=== PATIENT | female | born 1945 | race Caucasian/White ===

== ENCOUNTER 2020-03-09 14:28 | Inpatient (IN) | payer MEDICARE ==
[~2020-03-09] VITALS: Ht 152.4 cm; Wt 47.8 kg
[~2020-03-09 14:28] MED LIST: AMLO-150 PO; ASPI-515 PO; ATOR40TA78 PO; CYAN500T18 PO; DOCU100C33 PO; ENOX30SY4 SC; ERGO500017 PO; FOLI-17 PO; FURO20TA3 PO; GABA-827 PO; GABA100C PO; GUAI200T37 PO; HYDR-3342 PO; HYDR-826 PO; IPRA0.2S35 INH; LOSA100T14 PO; LOSA1TAB25 PO; METH2.5T PO; MORP-29 PO; MULT-108 PO; OXYC5CAP2 PO; OXYC5TAB3 PO; POTA10CA PO; RIVA10TA2 PO; ROPI2TAB8 PO; SIME80TA15 PO; SULF500T36 PO; Sulfameth./Trimethoprim Ds PO; TRAZ50TA66 PO
[2020-03-09] MEDS ORDERED: SODIUM CHLORIDE 0.9% 1,000ML IVBOLUS ONE (15:00)
[2020-03-09] MEDS ORDERED: SODIUM CHLORIDE FLUSH 10ML SYR IVF ONE (15:00)
[2020-03-09] MEDS ORDERED: ONDANSETRON 2MG/ML, 2ML IVPush ONE (15:00)
[2020-03-09] MEDS ORDERED: ONDANSETRON 2MG/ML, 2ML ONE (15:15)
[2020-03-09] MEDS ORDERED: HYDROmorphone 1 MG/ML, 1ML INJ ONE ×2 (15:15→15:42)
[2020-03-09] MEDS: HYDROmorphone 2 MG/ML, 1ML IVPush PRN ×2 (15:49→16:18)
[2020-03-09] MEDS ORDERED: HYDROmorphone 1 MG/ML, 1ML INJ IV ONE ×2 (16:00→17:30)
--- NOTE | 2020-03-09 16:08 | NUR ---
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 REQUESTING PLACEMENT FOR FURTHER CARE. 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 LIS SW IN ROOM TALKING TO FAMILY. PT STOOL AND URINE CLEANED, A PUREWICK PUT IN. PT STILL HAVING 10/10 PAIN. CALL LIGHT IN REACH.
[2020-03-09 16:30] LABS: ALBUMIN 2.3 g/dL (3.4-5.0); ANION GAP 5 mmol/L (5-15); CALCIUM 8.4 mg/dL (8.5-10.1); CHLORIDE 108 mmol/L (98-107); CREATININE 0.52 mg/dL (0.55-1.02)
[2020-03-09 16:31] LABS: BASOPHILS % (AUTO) 1 % (0-1); EOSINOPHILS % (AUTO) 2 % (1-7); LYMPHOCYTES % (AUTO) 8 % (22-44); MEAN CORPUSCULAR HEMOGLOBIN 24.5 pg (27.0-34.8); MEAN CORPUSCULAR HGB CONC 31.2 g/dL (32.4-35.8); MEAN PLATELET VOLUME 7.4 fL (7.4-10.4); MONOCYTES % (AUTO) 8 % (2-9); NEUTROPHILS % (AUTO) 82 % (42-75); PLATELET COUNT 610 x10^3/uL (130-400); RED BLOOD COUNT 5.05 x10^6/uL (3.82-5.3); RED CELL DISTRIBUTION WIDTH 22.2 % (9.6-15.2)
[2020-03-09 16:36] LABS: ALANINE AMINOTRANSFERASE < 6 U/L (12-78)
[2020-03-09 16:37] LABS: ALKALINE PHOSPHATASE 105 U/L (45-117); BILIRUBIN,TOTAL 0.4 mg/dL (0.2-1.0); C-REACTIVE PROTEIN, QUANT 7.71 mg/dL (0.02-0.49); TOTAL PROTEIN 7.5 g/dL (6.4-8.2)
[2020-03-09 16:50] LABS: MD NO
[2020-03-09] MEDS ORDERED: VANCOMYCIN PER PHARMACY MC PRN (17:00)
[2020-03-09] MEDS ORDERED: AMPICILLIN/SULBACTAM 3 GM in SODIUM CHLORIDE 0.9% 100 ML IV ONE (17:00)
[2020-03-09] MEDS ORDERED: VANCOMYCIN 900 MG in SODIUM CHLORIDE 0.9% 100 ML IV ONE (17:00)
[2020-03-09 17:08] LABS: HCT (SEDRATE) 39.7 % (34.6-47.8)
[2020-03-09] MEDS ORDERED: KETAMINE 10 MG/ML, 20ML IV ONE ×2 (17:30→18:00)
[2020-03-09] MEDS ORDERED: KETAMINE 10 MG/ML, 20ML ONE ×2 (17:31→19:50)
--- NOTE | 2020-03-09 17:46 | NUR ---
PHARM REQUEST SENT FOR FAUSTINO
--- NOTE | 2020-03-09 18:09 | NUR ---
PT CALM RESTING IN BED
--- NOTE | 2020-03-09 18:59 | NUR ---
No sepsis bolus fluids per Lillie Morales.
[2020-03-09] MEDS ORDERED: ENALAPRILAT 1.25 MG/ML, 2ML IVPush PRN (19:00)
[2020-03-09] MEDS ORDERED: ENOXAPARIN 40 MG/0.4 ML SQ SCH (19:00)
[2020-03-09] MEDS ORDERED: ONDANSETRON ODT 4 MG PO PRN (19:00)
[2020-03-09] MEDS ORDERED: ONDANSETRON 2MG/ML, 2ML IVPush PRN (19:00)
--- NOTE | 2020-03-09 19:04 | NUR ---
REPORT RECEVIED FROM GILL HUBER
[2020-03-09] MEDS ORDERED: ERGOCALCIFEROL 50,000 UNIT CAPSULE PO SCH (19:30)
[2020-03-09] MEDS ORDERED: SENNOSIDES 8.6 MG TABLET PO PRN (19:30)
[2020-03-09] MEDS ORDERED: ENOXAPARIN 40 MG/0.4 ML ONE (20:07)
[2020-03-09] MEDS ORDERED: AMOXICILLIN/CLAV 875-125MG TABLET ONE (20:08)
[2020-03-09] MEDS ORDERED: TRAZODONE 50MG TABLET ONE (20:08)
[2020-03-09] MEDS ORDERED: ATORVASTATIN 40 MG TABLET ONE (20:08)
[2020-03-09] MEDS ORDERED: SULFAMETH./TRIMETHOPRIM DS 800MG/160MG TABLET ONE (20:08)
[2020-03-09] MEDS ORDERED: OXYcodone IR 5MG TABLET ONE (20:10)
[2020-03-09] MEDS ORDERED: BISACODYL 10 MG SUPP PR PRN (20:30)
[2020-03-09] MEDS ORDERED: POLYETHYLENE GLYCOL 17 GM PACKET PO PRN (20:30)
[2020-03-09] MEDS: AMOXICILLIN/CLAV 875-125MG TABLET PO SCH (20:52)
[2020-03-09] MEDS: SULFAMETH./TRIMETHOPRIM DS 800MG/160MG TABLET PO SCH (20:52)
[2020-03-09] MEDS: LACTATED RINGERS 1,000 ML IV SCH (20:53)
--- NOTE | 2020-03-09 20:55 | NUR ---
MEDICATED PER EMAR. PT UPDATED ON POC INCLUDING NEEDING UA. PT REFUSING CATHETER, SET UP WITH PUREWICK. PT READJUSTED IN BED FOR COMFORT. CALL LIGHT WITHIN REACH, BED LOCKED AND IN LOWEST POSITION.
[2020-03-09] MEDS ORDERED: ROPINIROLE HCL 2 MG PO SCH (21:00)
[2020-03-09] MEDS ORDERED: DOCUSATE 100 MG CAPSULE PO SCH (21:00)
[2020-03-09] MEDS ORDERED: ATORVASTATIN 40 MG TABLET PO SCH (21:00)
[2020-03-09] MEDS ORDERED: TRAZODONE 50MG TABLET PO SCH (21:00)
--- NOTE | 2020-03-09 22:00 | NUR ---
PT READJUSTED IN BED FOR COMFORT. WATER PROVIDED.
--- NOTE | 2020-03-09 23:22 | NUR ---
PT RESTING IN HOSPITAL BED, EYES SHUT. CALL LIGHT WITHIN REACH.
--- NOTE | 2020-03-10 00:01 | NUR ---
PT RESTING IN HOSPITAL BED, EYES SHUT. CALL LIGHT WITHIN REACH.
[2020-03-10] MEDS ORDERED: OXYcodone IR 5MG TABLET ONE (01:01)
[2020-03-10] MEDS: OXYcodone IR 5MG TABLET PO PRN ×2 (01:11→08:15)
--- NOTE | 2020-03-10 01:30 | NUR ---
PT CLEANED, PUREWICK REPLACED, PT MEDICATED FOR PAIN AND ADJUSTED FOR COMFORT. BED LINENS CHANGED.
[2020-03-10] MEDS ORDERED: KETAMINE 10 MG/ML, 20ML ONE (02:26)
[2020-03-10] MEDS: KETAMINE 10 MG/ML, 20ML IV PRN ×2 (02:30→10:23)
--- NOTE | 2020-03-10 02:37 | NUR ---
pt requesting pain meds, medicated per emar. Another pillow under back given to help with comfort.
--- NOTE | 2020-03-10 03:30 | NUR ---
PT ON HOSPITAL BED WITH EYES SHUT, NO NEEDS AT THIS TIME
--- NOTE | 2020-03-10 05:00 | NUR ---
REPORT GIVEN TO BAYRON HUBER
[2020-03-10] MEDS ORDERED: [UNRECOGNIZED DRUG - OTHER] PO SCH (05:25)
[2020-03-10] MEDS ORDERED: ASPIRIN 81 MG TABLET EC PO SCH (06:00)
[2020-03-10 06:16] VITALS: BP 138/67
[2020-03-10 07:18] LABS: MEAN CORPUSCULAR HEMOGLOBIN 24.8 pg (27.0-34.8); MEAN CORPUSCULAR HGB CONC 31.2 g/dL (32.4-35.8); MEAN PLATELET VOLUME 7.1 fL (7.4-10.4); PLATELET COUNT 556 x10^3/uL (130-400); RED BLOOD COUNT 4.29 x10^6/uL (3.82-5.3); RED CELL DISTRIBUTION WIDTH 21.5 % (9.6-15.2)
[2020-03-10 07:28] LABS: ANION GAP 3 mmol/L (5-15); CALCIUM 7.8 mg/dL (8.5-10.1); CHLORIDE 110 mmol/L (98-107)
[2020-03-10 07:30] LABS: CREATININE 0.49 mg/dL (0.55-1.02)
[2020-03-10 07:41] VITALS: BP 147/73
[2020-03-10 07:42] LABS: MD YES
[2020-03-10 07:43] LABS: ANISOCYTOSIS 1+; BANDS%(MANUAL) 2 % (0-7); EOS#(MANUAL) 0.59 x10^3/uL (0.0-0.4); EOS% (MANUAL) 3 % (1-7); HYPOCHROMIA 1+; LYMPH#(MANUAL) 2.57 x10^3/uL (1-3.4); LYMPHS% (MANUAL) 13 % (22-44); MICROCYTOSIS 1+; MONOS#(MANUAL) 1.39 x10^3/uL (0.3-2.7); MONOS% (MANUAL) 7 % (2-9); SEG#(MANUAL) 14.85 x10^3/uL (1.8-6.8); SEGS% (MANUAL) 75 % (42-75)
[2020-03-10 07:44] LABS: <PLATELET ESTIMATE> INCREASED; <PLT MORPHOLOGY> NORMAL PLT MORPH
[2020-03-10] MEDS: SULFAMETH./TRIMETHOPRIM DS 800MG/160MG TABLET PO SCH (08:13)
[2020-03-10] MEDS: LACTATED RINGERS 1,000 ML IV SCH (08:13)
[2020-03-10] MEDS: AMOXICILLIN/CLAV 875-125MG TABLET PO SCH (08:14)
[2020-03-10] MEDS ORDERED: CYANOCOBALOMIN 100MCG TABLET PO SCH (09:00)
[2020-03-10] MEDS ORDERED: LOSARTAN 100 MG TAB PO SCH (09:00)
[2020-03-10] MEDS ORDERED: AMLODIPINE 5 MG TABLET PO SCH (09:00)
[2020-03-10] MEDS ORDERED: FOLIC ACID 1 MG TABLET PO SCH (09:00)
[2020-03-10] MEDS ORDERED: SULFASALAZINE 500 MG TABLET PO SCH (09:00)
[2020-03-10 11:21] VITALS: BP 155/68
[2020-03-10] MEDS ORDERED: MORPHINE SULFATE 4 MG/ML, 1ML IVPush PRN (12:00)
[2020-03-10] MEDS: HYDROmorphone/PF 20 MG in SODIUM CHLORIDE 0.9% 98 ML IV PRN ×3 (12:44→22:28)
[2020-03-10] MEDS: LORazepam 2 MG/ML, 1ML IVPush PRN ×2 (12:58→14:25)
[2020-03-10] MEDS ORDERED: SCOPOLAMINE 1MG PATCH TD SCH (15:00)
[2020-03-10] MEDS: LORazepam 2 MG/ML, 1ML IVPush SCH ×2 (17:28→21:00)
[2020-03-10] MEDS ORDERED: SODIUM CHLORIDE FLUSH 10ML SYR IVF SCH (21:00)
[2020-03-10] MEDS: ATROPINE OPHTH SOLN 1%, 5ML MM PRN (23:48)
[2020-03-11] MEDS: ATROPINE OPHTH SOLN 1%, 5ML MM PRN ×7 (01:48→11:19)
[2020-03-11] MEDS: HYDROmorphone/PF 20 MG in SODIUM CHLORIDE 0.9% 98 ML IV PRN ×2 (03:32→11:17)
[2020-03-11] MEDS: LORazepam 2 MG/ML, 1ML IVPush SCH ×3 (06:25→18:30)
[2020-03-11] MEDS: LORazepam 2 MG/ML, 1ML IVPush PRN (13:58)
[2020-03-11] MEDS ORDERED: HYDROMORPHONE IV PRN (15:31)
[2020-03-11] MEDS ORDERED: SODIUM CHLORIDE 0.9% IV PRN (15:31)
== END 2020-03-11 22:35 | disposition expired | DRG 871 ==
LOC: ED 14:58 → EDIP 17:11 → 5SO 03-10 05:21 → 4NE 03-10 14:23
PROVIDERS: ADMIT Family Medicine; ATTEND Family Medicine
DX: A41.9 Sepsis, unspecified organism (principal); L89.154 Pressure ulcer of sacral region, stage 4; R53.2 Functional quadriplegia; I96 Gangrene, not elsewhere classified; L89.629 Pressure ulcer of left heel, unspecified stage; L89.619 Pressure ulcer of right heel, unspecified stage; E78.5 Hyperlipidemia, unspecified; F17.200 Nicotine dependence, unspecified, uncomplicated; G25.81 Restless legs syndrome; I10 Essential (primary) hypertension; J44.9 Chronic obstructive pulmonary disease, unspecified; J98.4 Other disorders of lung; K59.00 Constipation, unspecified; M06.9 Rheumatoid arthritis, unspecified; M81.0 Age-related osteoporosis without current pathological fracture; G47.00 Insomnia, unspecified; G89.29 Other chronic pain; L89.309 Pressure ulcer of unspecified buttock, unspecified stage; L89.899 Pressure ulcer of other site, unspecified stage; R62.7 Adult failure to thrive; Z51.5 Encounter for palliative care; Z66 Do not resuscitate; Z74.01 Bed confinement status; Z88.5 Allergy status to narcotic agent; Z82.3 Family history of stroke; Z79.82 Long term (current) use of aspirin; Z79.899 Other long term (current) drug therapy; Z79.891 Long term (current) use of opiate analgesic; Z79.01 Long term (current) use of anticoagulants; D72.829 Elevated white blood cell count, unspecified
CPT/HCPCS: 36415; 71045; 80048; 80053; 83605; 85025; 85651; 86140; 87040; 93005; 96361; 96365; 96375; 96376; 99285; G0378; J0295; J1170; J2405; J3370; J2060; J7030; J7050; J7120; Q0177